=== PATIENT | male | born 1990 | race Caucasian/White ===

== ENCOUNTER 2018-08-16 02:51 | Emergency (ER) | payer OTHER ==
[~2018-08-16] VITALS: Ht 172.7 cm; Wt 81.6 kg
[2018-08-16 02:55] VITALS: Ht 172.7 cm; Wt 81.6 kg
[2018-08-16 04:55] VITALS: BP 126/79
== END 2018-08-16 05:22 | disposition home or self-care (01) ==
LOC: ED 02:51
DX: S05.01XA Injury of conjunctiva and corneal abrasion without foreign body, right eye, initial encounter (principal); R51 Headache; W22.8XXA Striking against or struck by other objects, initial encounter; Y93.89 Activity, other specified; Y92.89 Other specified places as the place of occurrence of the external cause; Y99.8 Other external cause status
CPT/HCPCS: J1885; Q0092